=== PATIENT | female | born 1960 | race Caucasian/White ===

== ENCOUNTER 2017-01-18 11:26 | Day surgery (SDC) | payer BC, OTHER ==
[~2017-01-18] VITALS: Ht 154.9 cm; Wt 64.9 kg
[2017-01-18] MEDS ORDERED: NO DAILY MEDS (11:55)
[2017-01-18 12:00] VITALS: Ht 154.9 cm; Wt 64.9 kg
--- NOTE | 2017-01-18 12:47 | OPPN ---
Date/Time of Note Date/Time of Note DATE: 01/18/17 TIME: 12:45 Operative Report Preoperative Diagnosis Abdominal pain Screening Postoperative Diagnosis Gastritis with erosions Diverticulosis of the colon Internal hemorrhoids Operation/Procedure Performed Esophagogastroduodenoscopy and biopsy Colonoscopy Provider: LIBRA MAE MD Anesthesia Type: moderate sedation Estimated blood loss: none Transfusion Required: no Specimens Gastric mucosal biopsy Grafts/Implants: none Complications: no LIBRA MAE MD Jan 18, 2017 12:47
[2017-01-18] MEDS ORDERED: MIDAZOLAM 1 MG/ML 2 ML INJ ONE ×2 (12:51→12:52)
[2017-01-18] MEDS ORDERED: FENTAnyl 50 MCG/ML VIAL ONE (12:51)
[2017-01-18 13:23] VITALS: BP 112/70
--- NOTE | 2017-01-18 18:05 | GILP ---
DATE OF PROCEDURE: 01/18/2017 PROCEDURES PERFORMED: 1. Esophagogastroduodenoscopy and biopsy. 2. Colonoscopy. SURGEON: Richard Bridges MD. PREOPERATIVE DIAGNOSES: 1. Abdominal pain. 2. Screening colonoscopy. POSTOPERATIVE DIAGNOSES: 1. Gastritis with erosions. 2. Gastric mucosal biopsies were taken for Helicobacter pylori test. 3. Colonoscopy all the way to the cecum. 4. Diverticulosis of the colon. 5. Internal hemorrhoids. 6. No colon neoplasm was identified. INDICATION: Ms. Maribel Friedman is a 56-year-old female patient who had upper abdominal pain not responding to therapy. She also needed a screening colonoscopy. The procedures and possible complications were well explained to the patient. The patient understood and consented to the procedures. DESCRIPTION OF PROCEDURE: Under influence of fentanyl and Versed, the gastroscope was carefully introduced into the esophagus. Under direct vision, it was advanced to the stomach, into the pylorus, into the duodenal bulb, and descending duodenum. FINDINGS: Esophagus, mucosa was normal. Stomach, the patient had gastritis with erosions. Gastric mucosal biopsies were taken for Helicobacter pylori test. Duodenum was normal. The colonoscope was carefully introduced in the rectum. Under direct vision, it was advanced all the way to the cecum. Findings, the patient was noted to have diverticulosis of the colon. She also had internal hemorrhoids. No colon neoplasm was identified. She tolerated the procedures very well, and there was no complications from the procedures. At the end of procedures she was awake with stable vital signs and she was discharged home in the care of her family. IMPRESSION: Please see postop diagnoses. PLAN: 1. Omeprazole 5 mg by mouth every a.m. 2. Await H. pylori test report. 3. Screening colonoscopy in 10 years. Dictated By: MD CLARA Le/kaur/[email or web address] a /Document#: [id number]
== END 2017-01-18 16:06 | disposition home or self-care (01) ==
LOC: GIL 11:26
PROVIDERS: ATTEND Internal Medicine Gastroenterology
DX: Z12.11 Encounter for screening for malignant neoplasm of colon (principal); K57.30 Diverticulosis of large intestine without perforation or abscess without bleeding; K64.8 Other hemorrhoids; K29.70 Gastritis, unspecified, without bleeding
CPT/HCPCS: 43239; 45378; 87081; J2250; J3010; Z7610